=== PATIENT | female | born 1990 | race Caucasian/White ===

== ENCOUNTER → 2016-06-07 | Outpatient (CLI) | payer OTHER | END | disposition home or self-care (01) | LOC: LAB.O 08:38 | PROVIDERS: ATTEND Obstetrics & Gynecology | DX: Z34.93 Encounter for supervision of normal pregnancy, unspecified, third trimester (principal); Z3A.31 31 weeks gestation of pregnancy ==

== ENCOUNTER → 2016-07-11 | Outpatient (CLI) | payer OTHER | END | disposition home or self-care (01) | LOC: LAB.O 12:57 | PROVIDERS: ATTEND Obstetrics & Gynecology | DX: Z34.03 Encounter for supervision of normal first pregnancy, third trimester (principal); Z3A.35 35 weeks gestation of pregnancy ==

== ENCOUNTER 2017-04-06 14:58 | Emergency (ER) | payer OTHER ==
[2017-04-06 15:07] VITALS: TEMP 98.7; O2SAT 97
--- NOTE | 2017-04-06 15:15 | ED.PDOC ---
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 THE PAIN IS SHARP 8/10. SHE HAS AN 8 MONTH CHILD AND IS BREAST FEEDING. VOICES NO ABDOMINAL SURGERIES Abdominal Pain Onset Location: RUQ, RLQ Pain Radiation: flank, back Quality: severe Timing/Duration: 1/2 hour Improving Factors: nothing Worsening Factors: nothing Associated Symptoms: back pain, nausea/vomiting Review of Systems - Review of Systems Constitutional: States: see HPI EENTM: States: no symptoms reported Respiratory: States: no symptoms reported Cardiology: States: no symptoms reported Gastrointestinal/Abdominal: States: abdominal pain, nausea Genitourinary: States: no symptoms reported Musculoskeletal: States: no symptoms reported Skin: States: no symptoms reported Neurological: States: no symptoms reported Endocrine: States: no symptoms reported Hematologic/Lymphatic: States: no symptoms reported Past Medical History (General) - Patient Medical History Hx Seizures: No Hx Asthma: No Hx Cardiac Disorders: No Hx Hypertension: No Family Medical History - Family History Mother Family History: Unknown Physical Exam - Physical Exam General Appearance: Alert, Anxious, Ill Appearing Eyes, Ears, Nose, Throat Exam: PERRL/EOMI, normal ENT inspection, TMs normal Neck: non-tender, full range of motion, supple, normal inspection Respiratory: chest non-tender, lungs clear, normal breath sounds, no respiratory distress, no accessory muscle use Cardiovascular/Chest: normal peripheral pulses, regular rate, rhythm, no edema, no gallop, no JVD, no murmur Peripheral Pulses: No deficit Gastrointestinal/Abdominal: normal bowel sounds, tenderness - TO THE RUQ AND RLQ Rectal Exam: deferred Back Exam: normal inspection Extremity: normal range of motion Neurologic: no motor/sensory deficits, alert, normal mood/affect, oriented x 3 Skin Exam: normal color Lymphatic: no adenopathy Progress - Results/Orders Results/Orders: THE LAB AND IMAGING IS REPORTED. THE CT OF THE ABDOMEN AND PELVIS: 3 MM STONE ON THE DISTAL RIGHT URETER. NEPHROCALCINOSIS Departure - Departure Clinical Impression: Renal colic on right side, Nephrocalcinosis Time of Disposition: 17:48 Disposition: Discharge to Home or Self Care Condition: Good Departure Forms: ED Discharge - Pt. Copy, Patient Portal Self Enrollment Instructions: DI for Abdominal Pain-Adult, Kidney Stones -- Adult, DI for Kidney Stones Diet: resume usual diet Activity: ambulate only with walker Referrals: Skye Armstrong [Primary Care Provider] - 1-2 Weeks Prescriptions: Ketorolac Tromethamine 10 mg PO TID 5 Days tab Home Medications: Ambulatory Orders Ketorolac Tromethamine 10 mg PO TID 5 Days tab 04/06/17 Additional Instructions: DRINK PLENTY OF FLUIDS
[2017-04-06] MEDS ORDERED: ONDANSETRON INJ 4 MG/2 ML VIAL ONE (15:25)
[2017-04-06] MEDS: KETOROLAC TROMETHAMINE INJ 30 MG/ML VIAL IV ONE (15:29)
[2017-04-06] MEDS: ONDANSETRON INJ 4 MG/2 ML VIAL IV ONE (15:30)
[2017-04-06 15:59] VITALS: BP 123/84
--- NOTE | 2017-04-06 17:07 | CT ---
EXAM DESCRIPTION: Abdomen/Pelvis w/o Contrast CLINICAL HISTORY: 27 years Female RIGHT SIDED FLANK PAIN-STONE STUDY COMPARISON: None. TECHNIQUE: Contiguous axial images obtained through the abdomen and pelvis without IV contrast. Reformatted images obtained. This exam was performed according to our department optimization program which includes automated exposure control, adjustment of the mA and/or kv according to patient size and/or use of iterative reconstruction technique. FINDINGS: The lung bases are clear. The liver appears unremarkable. The spleen and pancreas appear unremarkable. No adrenal masses. Bilateral renal calculi. Moderate right hydronephrosis and hydroureter. 3 mm obstructing distal right ureteral calculus. The gallbladder is visualized. No aneurysmal dilatation of the aorta. No bowel obstruction. Unremarkable appendix. IUD in the uterus which is retroverted. Small amount of free fluid in the pelvis. IMPRESSION: Bilateral renal calculi Moderate right hydronephrosis with an obstructing 3 mm distal stone Small amount of fluid in the pelvis Electronically signed by: Leni Plata 04/06/2017 5:06 PM [employer]
== END 2017-04-06 18:08 | disposition home or self-care (01) ==
LOC: ER 14:58
DX: N20.1 Calculus of ureter (principal); E83.59 Other disorders of calcium metabolism; N29 Other disorders of kidney and ureter in diseases classified elsewhere
CPT/HCPCS: 36415; 74176; 80053; 81001; 83690; 84703; 85025; J1885; J2405